=== PATIENT | female | born 1940 | race Two or more races ===

== ENCOUNTER → 2020-09-14 | Outpatient (CLI) | payer MEDICARE | END | disposition home or self-care (01) | LOC: LAB 16:37 → LAB SHORT 16:37 | DX: N39.0 Urinary tract infection, site not specified (principal) | CPT/HCPCS: 87086 ==

== ENCOUNTER → 2022-10-03 | Outpatient (CLI) | payer MEDICARE ==
[~2022-10-03] MED LIST: SULTRIDS PO
== END | disposition home or self-care (01) ==
LOC: LAB 09:20 → LAB SHORT 09:20
DX: N39.0 Urinary tract infection, site not specified (principal)
CPT/HCPCS: 87077; 87086; 87186

== ENCOUNTER → 2023-12-08 | Outpatient (CLI) | payer MEDICARE | END | disposition home or self-care (01) | LOC: LAB 09:08 → LAB SHORT 09:08 | DX: N39.0 Urinary tract infection, site not specified (principal) | CPT/HCPCS: 87077; 87086; 87186 ==

== ENCOUNTER → 2024-01-17 | Outpatient (CLI) | payer MEDICARE | END | disposition home or self-care (01) | LOC: LAB 09:40 → LAB SHORT 09:40 | DX: N39.0 Urinary tract infection, site not specified (principal) | CPT/HCPCS: 87086 ==

== ENCOUNTER → 2024-05-31 | Outpatient (CLI) | payer MEDICARE | LOC: LAB 15:03 → LAB SHORT 15:03 | DX: N39.0 Urinary tract infection, site not specified (principal) | CPT/HCPCS: 87077; 87086; 87186 ==

== ENCOUNTER → 2024-07-30 | Outpatient (CLI) | payer MEDICARE | END | disposition home or self-care (01) | LOC: LAB SHORT 17:36 → LAB 17:36 | DX: N39.0 Urinary tract infection, site not specified (principal) | CPT/HCPCS: 87086 ==

== ENCOUNTER 2024-09-16 05:50 | Day surgery (SDC) | payer MEDICARE ==
[~2024-09-16] VITALS: Ht 165.1 cm; Wt 60.5 kg
[2024-09-16] VITALS (17 sets, daily range): BP systolic 93–131; BP diastolic 50–72
[~2024-09-16 05:50] MED LIST changes: +ATOR40TA PO; +LISI20 PO
[2024-09-16] MEDS ORDERED: OxyCODONE HCL 10 MG TABCR PO SCH (06:20)
[2024-09-16] MEDS ORDERED: Ropivacaine 0.5% HCl/Pf 123.125 MG,EPINEPHrine HCL 0.25 MG,Clonidine HCl/Pf 40 MCG in N... INFIL SCH (06:20)
[2024-09-16] MEDS ORDERED: Acetaminophen 500 MG Tab PO SCH ×2 (06:20→08:00)
[2024-09-16] MEDS ORDERED: Tranexamic Acid 100 ML IV SCH (06:20)
[2024-09-16] MEDS ORDERED: Lactated Ringer's 1,000 ML IV SCH ×2 (06:20→07:45)
[2024-09-16] MEDS ORDERED: CeFAZolin Sodium 2,000 MG in NS 100 ML IV SCH ×2 (06:20→16:00)
[2024-09-16] MEDS ORDERED: Chlorhexidine Mouth Care 15 ML UDC MT SCH (06:20)
--- NOTE | 2024-09-16 07:15 | NUR ---
History, Chart, Medications and Allergies reviewed before start of procedure. Pre-Op teaching done. Pt verbalizes understanding. Patient confirms NPO status and agrees with scheduled surgery. PT GAVE GLASSES TO AT BS.
[2024-09-16] MEDS ORDERED: propofoL 60 ML IV ONE (07:17)
[2024-09-16] MEDS ORDERED: Lidocaine HCl 2% 20 ML MDV ONE (07:18)
[2024-09-16] MEDS ORDERED: ePHEDrine Sulfate 50 MG/ML 1ML Injection ONE (07:19)
[2024-09-16] MEDS ORDERED: Bupivacaine 0.5% HCl 5 MG/ML 30MLVIAL ONE (07:19)
[2024-09-16] MEDS ORDERED: OxyCODONE HCL 5 MG TAB PO PRN ×2 (07:40→07:45)
[2024-09-16] MEDS ORDERED: DiphenhydrAMINE HCL 25 MG Cap PO PRN (07:40)
[2024-09-16] MEDS ORDERED: Promethazine HCl 25 MG Tab PO PRN (07:40)
[2024-09-16] MEDS ORDERED: Bisacodyl 10 MG Supp PR PRN (07:40)
[2024-09-16] MEDS ORDERED: Prochlorperazine Edisylate 10 mg Vial IV PRN (07:45)
[2024-09-16] MEDS ORDERED: FLU VACC TS2024-25(6MOS UP)/PF 45 MCG/0.5 ML SYRINGE IM SCH (07:45)
[2024-09-16] MEDS ORDERED: HYDROmorphone HCl/Pf 1MG SYR IV PRN (07:45)
[2024-09-16] MEDS ORDERED: Magnesium Hydroxide Conc 10 ML UDC PO PRN (07:45)
[2024-09-16] MEDS ORDERED: Metoclopramide HCl 5MG / ML 2ML Vial IV PRN (07:45)
[2024-09-16] MEDS ORDERED: Ondansetron HCl 2 MG / ML 2ML Vial IV PRN (07:45)
[2024-09-16] MEDS ORDERED: propofoL 40 ML IV ONE (08:39)
[2024-09-16] MEDS ORDERED: Phenylephrine HCl 100 MCG/ML-NS 10MLSYR (1MG/10ML) ONE (08:56)
[2024-09-16] MEDS ORDERED: Docusate Sodium 100 MG Cap PO SCH (09:00)
[2024-09-16] MEDS ORDERED: Lisinopril 20 MG Tab PO SCH (09:00)
[2024-09-16] MEDS ORDERED: propofoL 20 ML IV ONE (09:00)
--- NOTE | 2024-09-16 10:27 | NUR ---
PT ARRIVED TO THE ROOM AT APPROXIMATELY 1015. PT ALERT, ORIENTED, AND PLEASANT. PT DENIES PAIN. PT STILL UNABLE TO FEEL OR MOVE BLE R/T SPINAL ANESTHESIA. PT DENIES NAUSEA. VSS. PT'S IS AT THE BEDSIDE FOR SUPPORT.
[2024-09-16] MEDS ORDERED: ACET500 PO (11:36)
[2024-09-16] MEDS ORDERED: ASPI81CH PO (11:36)
[2024-09-16] MEDS ORDERED: OXYC5 PO (11:37)
[2024-09-16] MEDS ORDERED: Ketorolac Tromethamine 15mg Vial IV SCH (12:00)
--- NOTE | 2024-09-16 20:09 | NUR ---
SHIFT SUMMARY PT IS POD#0. PAIN HAS BEEN MANAGED WITH PO PAIN MEDICATION. PT HAS HAD NAUSEA T/O THE DAY AND VOMITED X1. SHE HAS BEEN ABLE TO TOLERATE SMALL AMOUNTS OF FOOD AND ADEQUATE PO FLUIDS. PT WORKED WITH THERAPY TODAY, SHE IS A 1 ASSIST WHEN OOB. VSS. PT USES CALL LIGHT APPROPRIATELY. REPORT GIVEN TO CORRINE ROTH.
--- NOTE | 2024-09-17 04:13 | NUR ---
SHIFT SUMMARY POD1 R KATERYNA. SENSATION AND CIRCULATION REMAIN INTACT. VSS. PT HAS BEEN ABLE TO AMBULATE TO THE BATHROOM TO VOID W/ 1P FWW GT BELT. PT MEDICATED FOR PAIN W/OXY W/ TOLLERABLE RESULTS. TOLLERATING PO FLUIDS T/O THE NIGHT W/O NAUSEA OF EMESIS. OVERALL, NO ACUTE EVENTS NOTED. PLAN FOR PT TODAY AND D/C HOME.
[2024-09-17 04:16] VITALS: BP 122/67
[2024-09-17 05:25] LABS: BASOPHILS ABSOLUTE AUTO 0.02 K/mm3 (0.00-0.23); BASOPHILS PERCENT AUTO 0 % (0-2); EOSINOPHILS ABSOLUTE AUTO 0.04 K/mm3 (0.00-0.68); EOSINOPHILS PERCENT AUTO 0 % (0-6); Hematocrit 26.7 % (33.0-51.0); Hemoglobin 8.8 g/dL (11.5-16.0); IMMATURE GRAN ABSOLUTE AUTO 0.04 K/mm3 (0.00-0.10); IMMATURE GRAN PERCENT AUTO 0 % (0-1); LYMPHOCYTES ABSOLUTE AUTO 1.35 K/mm3 (0.84-5.20); LYMPHOCYTES PERCENT AUTO 15 % (21-46); MONOCYTES ABSOLUTE AUTO 1.18 K/mm3 (0.16-1.47); MONOCYTES PERCENT AUTO 13 % (4-13); Mean Corpuscular HGB 30.2 pg (26.0-34.0); Mean Corpuscular Volume 92 fL (80-100); Mean Platelet Volume 9.4 fL (9.1-12.4); NEUTROPHILS ABSOLUTE AUTO 6.43 K/mm3 (1.96-9.15); NEUTROPHILS PERCENT AUTO 71 % (41-73); Platelet Count 322 K/mm3 (150-400); RDW Coefficient Variation 12.5 % (11.7-14.2); RDW Standard Deviation 41.6 fL (35.1-46.3); Red Blood Cell Count 2.91 M/mm3 (3.80-5.20); White Blood Cell Count 9.06 K/mm3 (4.00-11.30)
[2024-09-17 06:15] LABS: Bun/Creatinine Ratio 20.6 (12.0-20.0); Calcium, Blood 8.6 mg/dL (8.5-10.1); Creatinine, Blood 0.82 mg/dL (0.40-1.00); Magnesium, Blood 1.9 mg/dL (1.6-2.4); Potassium, Blood 3.7 mmol/L (3.5-5.5)
[2024-09-17 07:05] VITALS: BP 110/69
[2024-09-17] MEDS ORDERED: Aspirin 81 MG Chew PO SCH (09:00)
[2024-09-17 09:56] VITALS: BP 127/79
--- NOTE | 2024-09-17 10:10 | NUR ---
DISCHARGE PT PROVIDED WITH WRITTEN AND VERBAL DISCHARGE INSTRUCTIONS; SHE REPORTED UNDERSTANDING. PT MET ALL GOALS PRIOR TO DISCHARGE. PT PROVIDED WITH CLEAN DRESSINGS. PT ASSISTED OUT IN W/C AT APPROXIMATELY 1005.
== END 2024-09-17 10:30 | disposition home or self-care (01) ==
LOC: ORSCMMR 05:50 → ORD 07:30 → SURS 10:15 → ORSCMMR 09-17 10:30
PROVIDERS: Orthopaedic Surgery
PROC: 0SR90JA Replacement of Right Hip Joint with Synthetic Substitute, Uncemented, Open Approach (ICD-10-PCS; principal; 2024-09-16 07:30)
DX: M16.11 Unilateral primary osteoarthritis, right hip (principal); I10 Essential (primary) hypertension; E78.5 Hyperlipidemia, unspecified; Z79.899 Other long term (current) drug therapy; Z85.3 Personal history of malignant neoplasm of breast
CPT/HCPCS: 36415; 72170; 80048; 83735; 85025; 97110; 97116; 97162; 97530; A9270; C1713; C1769; C1776; J0171; J0690; J0735; J2371; J2405; J2704; J2795; J7120